=== PATIENT | male | born 2000 | race Caucasian/White ===

== ENCOUNTER 2023-08-10 17:48 | Emergency (ER) | payer OTHER ==
--- OUTSIDE RECORDS SUMMARY | 2023-08-10 17:51 | XMS REPORT | Continuity of Care Document ---
:2000 Author Organization [facility] t Address [address] [facility] [address] [place] [address] Care Team Providers Name Role Phone PCP, PATIENT DOES NOT HAVE A Primary Care Physician Ying García Attending Clinician Unavailable Carlos Stone DO Attending Clinician CARLOS STONE Attending Clinician Unavailable Payers Payer Name Policy Type Policy Number Effective Date Expiration Date S ource Problems This patient has no known problems. Allergies, Adverse Reactions, Alerts Allergy Allergy Status Severity Reaction(s) Onset Inactive Treating Comm ents Source Name Type Date Date Clinician NO KNOWN Drug Active Univers ALLERGIE Class ity of [facility] Social History Social Habit Start Date Stop Date Quantity Comments Source Gender identity [facility] Sexual orientation [facility] Sex Assigned At [birth year] Uni [facility] 00:00:00 00:00:00 [facility] Smoking Status Start Date Stop Date Source Tobacco smoking consumption [facility] Medications Ordered Filled Start Stop Current Ordering Indication Dosage Frequency Signature Comments Components Source Medication Medication Date Date Medication? Clinician (SIG) Name Name acetaminoph 2022-2022- No 1000mg 1,000 mg, Univers en 06-10 Oral, ity of (TYLENOL) 23:00: 22:09 [place] tablet [place]00 dose, On Medical 1,000 mg Wed Branch 06/10/23 at 1800, Routine dexamethaso 2022-2022- No 10mg 10 mg, Uni vers ne sod phos 06-10 Oral, ity of PF 22:00: 22:09 ONCE, 1 [place] injection 00 :00 dose, On Medica l 10 mg Thu Branch 06/10/23 at 1700, 1 mL ibuprofen 800mg 800 mg, Uni vers (IBU) 06-10 Oral, ity of tablet 800 22:00: 22:09 ONCE, 1 [place] as mg 00 :00 dose, On Medical Thu Branch 06/10/23 at 1700, LORNA Vital Signs Vital Name Observation Time Observation Value Comments Source Systolic blood 2023-06-10 23:57:00 132 mm[Hg] Univer sity of pressure [facility] Diastolic blood 2023-06-10 23:57:00 85 mm[Hg] [facility] rate 2023-06-10 23:57:00 91 /min [facility] Body temperature 2023-06-10 23:57:00 37.11 [facility] Res[facility] rate 2023-06-10 23:57:00 18 /min [facility] Body weight 2023-06-10 21:28:00 84.823 kg [facility] Oxygen saturation in 2023-06-10 21:28:00 96 /min [facility] blood by [facility] Pulse oximetry Branch Procedures Procedure Date / Time Performed Performing Clinician Sour e RAPID STREP SCREEN 2023-06-10 22:05:00 Carlos Stone [facility] FOR GROUP A Medical Branch COVID-19 (ID NOW 2023-06-10 22:05:00 Carlos Stone [facility] RAPID TESTING) Medical Branch CONSENT/REFUSAL FOR 2023-06-10 21:12:21 Doctor Unassigned, No Un [facility] DIAGNOSIS AND Name Medical Branch TREATMENT Encounters Start End Encounter Admission Attending Care Care Encounter Source Date/Time Date/Time Type Type Clinicians Facility Department ID 2023-06-16 2023-06-16 Outpatient ALYCE Garcia [id number] [facility] 08:00:00 08:00:00 [facility] 2023-06-10 2023-06-10 Emergency Dao, TRAUMA [id number] Univers 16:28:00 18:59:00 Carlos [place] [id number] it y of [id number] [facility] [id number] [address] 2023-06-10 2023-06-10 Emergency X CARLOS STONE [facility] ERT 1 [id number] Univers 16:28:00 18:59:00 CARLOS STONE of [facility] Results This patient has no known results.
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
--- NOTE | 2023-08-10 19:18 | RAD REPORT ---
EXAM DESCRIPTION: RAD - Hand Right 3 View - 08/10/2023 7:03 pm CLINICAL HISTORY: PAIN COMPARISON: No comparisons FINDINGS: Mildly angulated fracture seen mid shaft of the fifth metacarpal. Mild adjacent soft tissu e swelling. No dislocation.
[2023-08-10] MEDS ORDERED: TDAP (DIPHTH,PERTUSS(ACELL),TET VAC) 0.5 ML VIAL IMVAC ONE (20:01)
[2023-08-10 20:59] VITALS: BP 146/98; TEMP 98; O2SAT 99
== END 2023-08-10 20:21 | disposition home or self-care (01) ==
LOC: ER 17:48
PROC: 2W3EX1Z Immobilization of Right Hand using Splint (ICD-10-PCS; principal; 2023-08-10)
DX: S62.336A Displaced fracture of neck of fifth metacarpal bone, right hand, initial encounter for closed fracture (principal); Z23 Encounter for immunization
CPT/HCPCS: 90471; 99284